=== PATIENT | female | born 1980 | race Caucasian/White ===

== ENCOUNTER 2024-01-09 10:51 | Outpatient (CLI) | payer OTHER, SELFPAY ==
[2024-01-09 12:50] LABS: Basophils Absolute Auto 0.1 K/mm3 (0.0-0.1); Basophils Percent Auto 0.8 % (0.2-1.2); Eosinophils Absolute Auto 0.2 K/mm3 (0-0.3); Hematocrit 43.5 % (37.0-47.0); Hemoglobin 14.3 g/dL (12.0-15.0); Immature Granulocyte Absolute 0.01 K/mm3 (0.00-0.031); Immature Granulocyte Percent A 0.2 % (0-0.5); Lymphocytes Absolute Auto 2.38 K/mm3 (0.9-3.2); Lymphocytes Percent Auto 37.7 % (18.3-44.2); Mean Corpuscular HGB Conc 32.9 g/dl (32-36); Mean Corpuscular Hemoglobin 29.9 pg (26-34); Mean Corpuscular Volume 90.8 fl (80-100); Monocytes Absolute Auto 0.5 K/mm3 (0.1-0.6); Monocytes Percent Auto 7.8 % (2.6-8.5); Neutrophils Absolute Auto 3.2 K/mm3 (1.3-6.7); Neutrophils Percent Auto 50.5 % (45.5-73.1); Platelet Count Result 384 k/mm3 (150-375); Red Blood Count 4.79 M/mm3 (4.2-5.4); Red Cell Distribution Width 13.3 % (11.5-14.5); White Blood Count 6.3 K/mm3 (4.5-10.0)
== END 2024-01-09 10:52 | disposition home or self-care (01) ==
LOC: ANHGOSHLAB 10:53
PROVIDERS: PCP Internal Medicine; Visit Provider Obstetrics & Gynecology
DX: N93.9 Abnormal uterine and vaginal bleeding, unspecified (principal)
CPT/HCPCS: 36415; 85025

== ENCOUNTER 2024-01-09 11:09 | Outpatient (CLI) | payer OTHER, SELFPAY ==
--- NOTE | ~2024-01-09 | US_ITS ---
EXAMINATION: US pelvic complete w TV INDICATION: Abnormal uterine bleeding Comparison:No prior studies for comparison. TECHNIQUE: Multiple transabdominal and endovaginal sonographic images of the pelvis performed. FINDINGS: The uterus measures 10.9 x 3.9 x 5.1 cm. The endometrial complex measures 6 mm. There is fl uid in the cervix, nonspecific. The right ovary measures 2.3 x 2.2 x 1.3 cm and the left ovary measures 2.7 x 2.4 x 2.4 cm. There ar e small follicles in each ovary. Normal doppler signal in both ovaries. There is no free fluid in the pelvis. There are no abnormal masses seen on either side. IMPRESSION: 1. Unremarkable pelvic ultrasound. Reviewed, dictated and finalized at location B.
== END 2024-01-09 11:10 ==
PROVIDERS: PCP Internal Medicine; Visit Provider Obstetrics & Gynecology
DX: N93.9 Abnormal uterine and vaginal bleeding, unspecified (principal)
CPT/HCPCS: 76830; 76856

== ENCOUNTER 2024-02-18 11:17 | Outpatient (CLI) | payer OTHER, SELFPAY ==
[2024-02-18 12:06] LABS: Hematocrit 44.7 % (37.0-47.0); Mean Corpuscular HGB Conc 33.6 g/dl (32-36); Mean Corpuscular Hemoglobin 30.2 pg (26-34); Mean Corpuscular Volume 89.9 fl (80-100); Mean Platelet Volume 9.4 fl (7.4-10.4); Platelet Count Result 377 k/mm3 (150-375); Red Blood Count 4.97 M/mm3 (4.2-5.4); Red Cell Distribution Width 13.5 % (11.5-14.5); White Blood Count 6.7 K/mm3 (4.5-10.0)
== END 2024-02-18 11:18 | disposition home or self-care (01) ==
PROVIDERS: PCP Internal Medicine; Visit Provider Obstetrics & Gynecology
DX: N92.1 Excessive and frequent menstruation with irregular cycle (principal); Z01.818 Encounter for other preprocedural examination
CPT/HCPCS: 36415; 85027; 86850; 86900; 86901

== ENCOUNTER 2024-02-21 11:16 | Observation (INO) | payer OTHER, SELFPAY ==
[2024-02-13 13:51] VITALS: BMI 20.5
--- NOTE | 2024-02-13 14:09 | SUR.PREOP ---
Report to the Outpatient Waiting Room, entrance under the green pavilion located off [facility], at time 0630 on date 02/21/24. Planned Procedure Time: 0830. Time changes happen often and if your time is changed the preop area will call you the afternoon before. - You and your visitor will be asked to self-screen and do not enter if you have any COVID symptoms. - A mask is optional within the hospital at this time. Patients may have clear liquids (water, carbonated beverages, clear teas, apple juice) until 3 hours prior to surgery with a maximum of 20 ounces. - No food from midnight until time of surgery Take the following medications with a SIP of water the morning of surgery: N/A DO NOT STOP ANY OF YOUR OTHER PRESCRIPTION MEDICATIONS PRIOR TO SURGERY ?EXCEPT THE FOLLOWING Medications to discontinue per physician N/A Date to take last dose N/A Please no make-up, nail bengali, hairspray, perfume, deodorant, or body powder the day of surgery. No jewelry (including any body piercings) or valuables the day of surgery, leave them at home. Please take a shower or bath the night before, or the morning of, surgery with an antibacterial soap. Wear comfortable, loose fitting clothing. Children are encouraged to wear pajamas. - Jewelry must be removed prior to entering the operating room. Rings and piercings that are not removed may be cut off. - The hospital will not accept responsibility for valuables. - Please leave all valuables, including medications, at home the day of surgery. If you are going home after surgery, a licensed explosives truck driver must drive you home. - NO public transportation without another adult if you receive anesthesia. - We recommend that an adult stay with you for 24 hours following discharge. - We also recommend that you do not drive, make important decision, drink alcoholic beverages, or take any drugs that were not prescribed by your health care provider for at least 24 hours after your discharge time. Follow any additional instructions given to you from your surgeon. If you or anyone in your household have experienced Covid symptoms in the past week, please notify your surgeon or the nurse liaison at the phone number below for possible testing. Telephone instructions given to LORRIE CARVALHO and asked if any additional questions and then verbalized understanding. Patient advised to call surgeon office or pre surgery nurse liaison [phone] if any additional questions.
--- NOTE | 2024-02-18 15:50 | PM.IMHP ---
H&P: HPI History of Present Illness Date/Time: 02/18/24 15:50 44-year-old 0 patient presents definitive treatment of heavy vaginal bleeding and pelvic pain states her cycles have been every month fairly consistently, 7-10 days with 2-3 days very heavy and changing tampon and pad hourly for these 2-3 days. Also increasing amount discomfort and cramping and has been on bio to work due to the discomfort that she counters. Has had normal Pap smears, recently in December without abnormality. Hysteroscopy with ultrasound in the past without abnormalities. Recent ultrasound with enlarged uterus though no specific abnormalities were noted. Also states that she has discomfort with intercourse. No history of any gynecologic surgeries or pelvic surgeries, though she has had an appendectomy in the past. Chief Complaint: Menometrorrhagia Review of Systems Review of Systems: All systems reviewed & are unremarkable except as noted in HPI and below PMFSH Past Medical History Medical History Kidney disorder extra tube on kidney Screening mammogram, encounter for Surgical History Surgical History History of appendectomy Hx of cholecystectomy Family History Family History Sibling Acute myocardial infarction brother Father Malignant neoplasm of prostate Multiple sclerosis Other Multiple acquired skin tags Social History Social History Smoking packs per day: 1 Smoking cigarettes per day: 20.0 Years smoked: 20 Smoking pack-years: 20.00 Smoking status: Current every day smoker Tobacco type: cigarettes Alcohol intake: never Substance use: current Substance use type: marijuana Other substance usage details: TAKES EDIBLE MAIJUANA DAILY FOR IBS Do You Feel Safe in your Home?: Yes Lack of Transportation: No Lack of Food: Never True Current Housing: I Have Housing Concerned About Future Housing: No Difficulty Paying Gas/Electric Bills: No Difficulty Paying for Meds: No Currently Unemployed: No Education: Bachelor's Degree Difficulty w/ Childcare or Family Care: No Living arrangements: alone Additional living arrangements comments: Occupation/Education: occupation 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 Gender identity (if verbalized by the patient): Female Sexual Orientation (if Verbalized by the Patient): Straight or Heterosexual Spiritual care concerns: No Meds Home Medications and Allergies Home Medications Medication Instructions Recorded Confirmed Type No Home Medications 01/07/24 02/13/24 History Allergies Allergy/AdvReac Type Severity Reaction Status Date / Time Penicillins Allergy Severe Nausea and Verified 02/13/24 14:28 Vomiting tylenol 3 AdvReac Severe Vomiting Uncoded 02/13/24 14:28 Exam Const: General: cooperative, healthy appearing and comfortable Resp: Effort & Inspection: normal respiratory effort Auscultation: clear to auscultation bilaterally Cardio: Rate: regular rate Rhythm: regular rhythm GI: Inspection: normal to inspection GI Palp: No abdominal tenderness Auscultation: normal bowel sounds : External Female Exam: normal external appearance Speculum Exam - Vagina: normal appearance of the vagina Speculum Exam - Cervix: normal appearance of the cervix Bimanual exam- vagina & uterus: enlarged ( 10-12 week size) and Uterine tenderness Bimanual Exam- Adnexa, other: normal adnexae Assessment and Plan Assessment and plan (1) Menometrorrhagia: Code(s): N92.1 - Excessive and frequent menstruation with irregular cycle Status: Acute (2) Dysmenorrhea: Code(s): N94.6 - Dysmenorrhea, unspecified Status: Acute (3) Dyspareunia: Status: Acu
[2024-02-21] VITALS (14 sets, daily range): BP systolic 107–133; BP diastolic 53–94; PULSE 52–100; RESP 12–18; TEMP 36.2–37.6; O2SAT 94–100; BMI 19.2
--- NOTE | 2024-02-21 07:18 | WPDHPUPDATE1 ---
History and Physical Update Update Date/Time: 02/21/24 07:18 History and Physical has been reviewed, including an updated exam of the patient. There are NO changes in the patient's condition. Risks, benefits, and alternatives have been discussed and questions answered. Patient agrees to proceed with procedure.
[2024-02-21] MEDS: LACTATED RINGERS 1,000 ML 30 ML IV CONT ×2 (07:30→09:52)
[2024-02-21 07:37] LABS: Hematocrit 42.9 % (37.0-47.0); Hemoglobin 14.5 g/dL (12.0-15.0); Mean Corpuscular HGB Conc 33.8 g/dl (32-36); Mean Corpuscular Hemoglobin 29.8 pg (26-34); Mean Corpuscular Volume 88.3 fl (80-100); Mean Platelet Volume 9.3 fl (7.4-10.4); Platelet Count Result 365 k/mm3 (150-375); Red Blood Count 4.86 M/mm3 (4.2-5.4); Red Cell Distribution Width 13.5 % (11.5-14.5); White Blood Count 8.1 K/mm3 (4.5-10.0)
[2024-02-21] MEDS: KETOROLAC 15 MG/ML VIAL (*BKC) IV PUSH (07:40)
[2024-02-21] MEDS: ACETAMINOPHEN 500 MG TABLET 1000 MG PO (07:40)
[2024-02-21 08:13] LABS: BEDSIDEPREGUCG Negative
--- NOTE | 2024-02-21 08:13 | WPDANESEPPF ---
Anes - Initial Pre Proc Eval Procedure: Operation Date: 02/21/24 08:15 Proposed Procedures p Robotic Assisted Total Laparoscopic Hysterectomy with Bilateral Salpingectomy - Jeremias Matthew MD Date/Time: 02/21/24 08:13 Surgeon: Jeremias Matthew MD Pre Op Diagnosis: Menometrorrhagia Patient Data Age: 44 Gender: F Height: 1.73 m Weight: 57.3 kg Last Vital Signs Temp 97.1 F L 02/21/24 06:15 Pulse 73 02/21/24 06:15 Resp 16 02/21/24 06:15 BP 107/74 02/21/24 06:15 Pulse Ox 98 02/21/24 06:15 O2 Del Method Room Air 02/21/24 06:15 Allergies Allergy/AdvReac Type Severity Reaction Status Date / Time Penicillins Allergy Severe Nausea and Verified 02/21/24 08:03 Vomiting tylenol 3 AdvReac Severe Vomiting Uncoded 02/21/24 08:03 Home Medications Medication Instructions Recorded Confirmed Type No Home Medications 01/07/24 02/13/24 History Laboratory Tests 02/21/24 02/21/24 06:25 07:31 WBC 8.1 K/mm3 (4.5-10.0) RBC 4.86 M/mm3 (4.2-5.4) Hgb 14.5 g/dL (12.0-15.0) Hct 42.9 % (37.0-47.0) MCV 88.3 fl (80-100) MCH 29.8 pg (26-34) MCHC 33.8 g/dl (32-36) RDW 13.5 % (11.5-14.5) Plt Count 365 k/mm3 (150-375) MPV 9.3 fl (7.4-10.4) POC Urine HCG, Qual Pending POC Ur Preg QC Pending Patient hx anesthesia problems: none Family hx anesthesia problems: none Results Review: All pre-operative results and documents have been reviewed as part of the pre-operative evaluation. [facility] Past Medical History Medical History Kidney disorder extra tube on kidney Screening mammogram, encounter for Surgical History Surgical History History of appendectomy Hx of cholecystectomy Family History Family History Sibling Acute myocardial infarction brother Father Malignant neoplasm of prostate Multiple sclerosis Other Multiple acquired skin tags Social History Social History Smoking packs per day: 1 Smoking cigarettes per day: 20.0 Years smoked: 20 Smoking pack-years: 20.00 Smoking status: Current every day smoker Tobacco type: cigarettes Alcohol intake: never Substance use: current Substance use type: marijuana Other substance usage details: TAKES EDIBLE MAIJUANA DAILY FOR IBS Do You Feel Safe in your Home?: Yes Lack of Transportation: No Lack of Food: Never True Current Housing: I Have Housing Concerned About Future Housing: No Difficulty Paying Gas/Electric Bills: No Difficulty Paying for Meds: No Currently Unemployed: No Education: Bachelor's Degree Difficulty w/ Childcare or Family Care: No Living arrangements: alone Additional living arrangements comments: Occupation/Education: occupation 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 Gender identity (if verbalized by the patient): Female Sexual Orientation (if Verbalized by the Patient): Straight or Heterosexual Spiritual care concerns: No Anes - Eval Final PreProcedure Day of Procedure 02/21/24 08:13 Patient weight: normal Heart: regular rate and rhythm Lungs: clear to auscultation Airway: Mallampati scale class II Neurological: alert and oriented Last oral intake: >/= 8 hours ASA classification: II Emergent: no Anesthetic plan: proceed Anesthesia type and monitoring: general ETT and standard monitoring Results Review: All pre-operative results and documents have been reviewed as part of the pre-operative evaluation. Active smoker, approx 20 pack years, none this am. Informed Consent: The patient's anesthetic plan and its attendant risks and benefits were discussed with the patient/
[2024-02-21] MEDS: ceFAZolin 2 GM/D5W 50 ML 2 GM/50 ML BAG IVPB (08:28)
--- NOTE | 2024-02-21 09:44 | W.PM.PROC2 ---
Procedure Note - Detailed Date of Procedure 02/21/24 Pre-op Diagnosis Menometrorrhagia Post-op Diagnosis Same Procedure Performed Robotic assisted total hysterectomy with salpingectomy bilateral. No oophorectomy Surgeon Jeremias Matthew MD Anesthesia General Findings Mildly enlarged uterus, tubes noted without abnormality. No evidence of endometriosis or adhesions. Description of Procedure Patient prepped and draped usual manner for this procedure. Cervical instruments were attempted to be placed but significant stenosis was noted therefore attention was placed to the abdomen. Abdominal trocar sites were marked and trocars were placed under direct visualization. Care was placed and while care was looking at the uterus surgeon moved back to the vagina and the cervical instruments were then placed under direct visualization. Surgeon then moved to the console. Round ligaments were cauterized and cut bilaterally bladder flap was developed without difficulty. Utero-ovarian ligaments were cauterized and cut, posterior leaf the broad ligament was incised to the posterior cervix to skeletonize the uterine vessels. These were cauterized and cut bilaterally without difficulty and rendered hemostatic. Anterior cul-de-sac was entered and this was carried circumferentially to separate the cervix from the vagina. Uterus was delivered into the vagina and these vaginal cuff was then closed using V lock suture from the right angle to the midline in a from the left angle midline with good hemostasis and approximation noted. Irrigation was undertaken there was no bleeding. Nirmal was empirically placed over the us surgical sites. At this point seizure was considered terminated, gas was allowed to escape, instruments removed and trocar sites were approximated using 0 Monocryl suture. Patient was then sent to recovery room in stable condition. Estimated Blood Loss 100 Drains No Packing No Pathology Yes Complications No immediate complications Condition Stable Disposition PACU [facility] Billing Surgery - Charge Forward: Surgery Billing
[2024-02-21] MEDS: fentaNYL CITRATE INJ (*CRX) 100 MCG/2 ML VIAL 25 MCG IV PUSH ×6 (10:16→11:05)
--- NOTE | 2024-02-21 11:40 | ADMGEN ---
1125-This patient, Martha Menjivar, was admitted to OB 2nd Floor Room 288-00. Patient/family oriented to hospital policies and general routines including ID bracelet, bed and alarms, visiting hours, pain management, procedures, bathroom and other care routines, personal items, smoking policy, room service/diet, and visiting hours. Information on how to activate the Rapid Response Team has been discussed. Patient/Family are encouraged to report perceived risks to care and to ask questions if they do not understand what they are told or what they should do.
[2024-02-21] MEDS: DEXTROSE 5%/0.45% SOD CHL 1,000 ML 125 ML IV CONT (11:49)
[2024-02-21] MEDS: SIMETHICONE 80 MG TAB.CHEW PO ×2 (11:49→17:47)
[2024-02-21] MEDS: KETOROLAC 30 MG/ML VIAL (*BKC) IV PUSH ×3 (11:50→23:28)
[2024-02-21] MEDS: ONDANSETRON INJ 4 MG/2 ML VIAL IV PUSH (13:44)
--- NOTE | 2024-02-21 17:22 | PC.NURSE ---
1530-Pt c/o nausea, pain. Zofran given to pt but pt states it didn't help. Dr. Matthew notified for something else for nausea; . Pt appears to be anxious and requested to go outside to smoke. RN did not allow pt to leave unit with IV fluids running. Pt takes marijuana edibles daily for control of IBS. Pt does not have them present with her in the hospital. Pt refused any oral pain meds since she is having nausea; pt states she does not want oral pain meds until she can eat; pt refuses to eat anything. 1715-Pt VS stable, abdomen soft, rates pain >6. Still refuses to take pain meds.
[2024-02-21] MEDS: METOCLOPRAMIDE HCL INJ 10 MG/2 ML VIAL 5 MG IV PUSH (17:46)
[2024-02-22 05:44] VITALS: BP 107/70; PULSE 81; RESP 18; TEMP 36.9; O2SAT 97
[2024-02-22 06:10] LABS: Basophils Percent Auto 0.3 % (0.2-1.2); Eosinophils Percent Auto 0.2 % (0-4.4); Hematocrit 39.9 % (37.0-47.0); Immature Granulocyte Absolute 0.05 K/mm3 (0.00-0.031); Immature Granulocyte Percent A 0.3 % (0-0.5); Immature Platelet Fraction Pct 7.8 % (0.9-11.2); Lymphocytes Absolute Auto 3.08 K/mm3 (0.9-3.2); Lymphocytes Percent Auto 20.5 % (18.3-44.2); Mean Corpuscular HGB Conc 32.6 g/dl (32-36); Mean Corpuscular Hemoglobin 30.1 pg (26-34); Mean Corpuscular Volume 92.4 fl (80-100); Mean Platelet Volume 10.5 fl (7.4-10.4); Monocytes Percent Auto 6.8 % (2.6-8.5); Neutrophils Absolute Auto 10.8 K/mm3 (1.3-6.7); Neutrophils Percent Auto 71.9 % (45.5-73.1); Platelet Count Result 204 k/mm3 (150-375); Red Blood Count 4.32 M/mm3 (4.2-5.4); Red Cell Distribution Width 13.5 % (11.5-14.5)
[2024-02-22] MEDS: SIMETHICONE 80 MG TAB.CHEW PO (07:39)
[2024-02-22] MEDS: IBUPROFEN 600 MG TABLET PO (07:41)
[2024-02-22 08:00] VITALS: PULSE 59; RESP 16; O2SAT 98
--- NOTE | 2024-02-22 08:17 | P.PNAN_ITS ---
Anes - Prog Note Post-Op Date/Time: 02/22/24 08:17 Vital Signs: Last Vital Signs Temp 36.9 C 02/21/24 23:34 Pulse 87 02/21/24 23:34 Resp 18 02/21/24 23:34 BP 119/71 02/21/24 23:34 Pulse Ox 98 02/21/24 23:34 O2 Del Method Room Air 02/21/24 23:34 O2 Flow Rate 8 02/21/24 10:00 Pain Score (VAS): 2 I/O: Intake & Output 02/21/24 02/22/24 02/22/24 23:59 07:59 15:59 Intake Total 710.4 Output Total 900 Balance -189.6 02/22/24 05:55 WBC Pending RBC Pending Hgb Pending Hct Pending MCV Pending MCH Pending MCHC Pending RDW Pending Plt Count Pending MPV Pending Immature Gran % (Auto) Pending Neut % (Auto) Pending Lymph % (Auto) Pending [place] % (Auto) Pending Eos % (Auto) Pending Baso % (Auto) Pending Lymph # (Auto) Pending [place] # (Auto) Pending Eos # (Auto) Pending Baso # (Auto) Pending Abs Immat Gran (auto) Pending Absolute Neuts (auto) Pending Absolute Nucleated RBC Pending Nucleated RBC % Pending Patient Feedback: Patient satisfied with anesthetic care.
[2024-02-22 08:21] LABS: Platelet Estimate Adequate (Adequate); Schistocytes None Seen
[2024-02-22 09:00] VITALS: BP 101/65; PULSE 59; RESP 18; TEMP 36.4; O2SAT 98
--- NOTE | 2024-03-18 10:18 | PM.DS ---
DS: Admitting Diagnosis Discharge Date 02/22/24 Admitting Diagnosis Large uterus DS: Summary Hospital Course Hospital Course: 44-year-old female admitted for robotic hysterectomy. See history and physical for full details. Underwent procedure without difficulty. See operative note for full details. Postoperatively ambuating voiding tolerating regular diet and on oral pain medications. Minimal vaginal spotting. Exam with positive bowel sounds and abdomen is soft. Incisions clean dry and intact. Time Spent with Patient Time attestation: Total time spent providing and/or coordinating discharge services: DS: Data Data Completed and Pending Completed studies during hospitalization: Pending at discharge 02/21/24 09:23 Surgical [PTH] Routine Discharge Plan Discharge Attending physician on discharge: Jeremias Matthew Consulting providers: Patrice Shirley; Nicole Benjamin Discharging Clinician: Jeremias Matthew Patient Disposition: Home, Self-Care Activity: no straining, no driving, follow weight bearing status and pelvic rest Diet: as tolerated Wound Care Instructions: incision open to air Patient Instructions: Antibiotic Form, Laparoscopic Hysterectomy (DC) Stand Alone Forms: General Discharge Information Follow-up/Referrals: Jeremias Matthew MD [Physician] - 2 Weeks Discharge Medications: New ibuprofen 600 mg Tablet 600 mg PO Q6H PRN (Reason: Cramping) Qty: 30 0RF Date of admission: 02/21/24 11:16 Primary Care Provider: IlanZbigniew Admitting Provider: Jeremias Matthew Attending physician on admission: Jeremias Matthew Condition: Stable
== END 2024-02-22 10:30 | disposition home or self-care (01) ==
LOC: ANHOB2 11:22
PROVIDERS: Admitting Provider Obstetrics & Gynecology; PCP Internal Medicine; Visit Provider Obstetrics & Gynecology
PROC: (CPT 58571; principal; 2024-02-21 08:15)
DX: D25.9 Leiomyoma of uterus, unspecified (principal); N92.1 Excessive and frequent menstruation with irregular cycle; N94.6 Dysmenorrhea, unspecified; N85.2 Hypertrophy of uterus; F17.210 Nicotine dependence, cigarettes, uncomplicated; Q63.8 Other specified congenital malformations of kidney
CPT/HCPCS: 58571; S2900; 36415; 85025; 85027; 85055; 86850; 86900; 86901; 88307; A9270; G0378; J0690; J1100; J1170; J1596; J1885; J2250; J2405; J2704; J2765; J3010; J7030; J7120; Q9968